=== PATIENT | male | born 1985 | race Hispanic/Latino ===

== ENCOUNTER 2020-09-02 05:58 | Emergency (ER) | payer SELFPAY ==
[2020-09-02 06:17] VITALS: BP 128/98; PULSE 92; RESP 18; TEMP 37; O2SAT 96
--- NOTE | 2020-09-02 06:25 | PC.NURSE ---
Pt presents to ED with complaints or pain to right ear for the past 2 days. Pt states he was cleaning his ear with q tip and went too far. Since then he has been experiencing yellow drainage and pain rated 8/10. Pain was last treated with tylenol yesterday. Denies nvd, fever, chills, chest pain and sob. Pt is alert and oriented x4. Divehi speaking with at bedside to translate. Pt resting comfortably on cart in its lowest position with call button and personal items within reach. Advised to press call button for assistance. Vitals are stable and pt in no obvious distress at this time.
--- NOTE | 2020-09-02 06:32 | ED.EAR ---
HPI - Ear Problem General Chief complaint: Ear Stated complaint: ear pain for 2 days Time Seen by Provider: 09/02/20 06:37 Source: patient Mode of arrival: ambulatory Limitations: no limitations History of Present Illness HPI Narrative: Patient complaining of right ear pain that started a few days ago. Denies any trauma to the ear. Denies any discharge. Denies any headache, neck pain, fever or chills. Complaint: ear pain Duration: constant Severity: moderate Relieving factors: nothing Exacerbating factors: palpation Related Data Allergies Allergy/AdvReac Type Severity Reaction Status Date / Time No Known Allergies Allergy Unverified 11/16/12 17:07 Review of Systems Review of Systems: All systems reviewed & are unremarkable except as noted in HPI and below PMFSH Social History Social History Gender identity (if verbalized by the patient): Male Comments Past medical history: None Family history: Noncontributory Social history: Non-smoker no EtOH or drug use Exam Const: General: healthy appearing, no acute distress and alert Orientation/consciousness: patient oriented x3 HENMT: Head: normal to inspection Face and sinus: normal facial exam Other: Erythematous, tender, swollen right external ear canal. Negative for any discharge. Tympanic membrane intact. Course Vital Signs Vital signs: Vital Signs Temperature 37.0 C 09/02/20 06:17 Pulse Rate 92 09/02/20 06:17 Respiratory Rate 18 09/02/20 06:17 Blood Pressure 128/98 H 09/02/20 06:17 Pulse Oximetry 96 09/02/20 06:17 Temperature 37.0 C 09/02/20 06:17 Pulse Rate 92 09/02/20 06:17 Respiratory Rate 18 09/02/20 06:17 Blood Pressure 128/98 H 09/02/20 06:17 Pulse Oximetry 96 09/02/20 06:17 Medical Decision Making Vital Signs Vital Signs: Vital Signs Temperature 37.0 C 09/02/20 06:17 Pulse Rate 92 09/02/20 06:17 Respiratory Rate 18 09/02/20 06:17 Blood Pressure 128/98 H 09/02/20 06:17 Pulse Oximetry 96 09/02/20 06:17 Temperature 37.0 C 09/02/20 06:17 Pulse Rate 92 09/02/20 06:17 Respiratory Rate 18 09/02/20 06:17 Blood Pressure 128/98 H 09/02/20 06:17 Pulse Oximetry 96 09/02/20 06:17 Discharge Plan Discharge Clinical Impression: Otitis externa Qualifiers: Otitis externa type: other infective Chronicity: acute Laterality: right Qualified Code(s): H60.391 - Other infective otitis externa, right ear Patient Disposition: Home, Self-Care Condition: Improved Instructions: Swimmer's Ear (AC) Patient Language: Kiswahili Prescriptions: New ciprofloxacin-dexamethasone [Ciprodex] 0.3-0.1 % drops,suspension 4 drp EACH EAR Q12H 7 Days RF: 0 Follow-up/Referrals: PHYSICIAN,[employer] CONTR[employer] OPERATOR [employer]MING [Primary Care Provider] - 09/04/20 Time of Disposition: 06:48
[2020-09-02] MEDS: IBUPROFEN 600 MG TABLET PO (06:46)
[2020-09-02] MEDS: ACETAMINOPHEN 325 MG TABLET 650 MG PO (06:46)
[2020-09-02 07:10] VITALS: BP 128/98; PULSE 92; RESP 16; TEMP 37; O2SAT 96
[2020-09-02 07:12] VITALS: BP 128/98; PULSE 92; RESP 18; TEMP 37; O2SAT 96
== END 2020-09-02 07:13 | disposition home or self-care (01) ==
PROVIDERS: Emergency Provider Emergency Medicine
DX: H60.391 Other infective otitis externa, right ear (principal)
CPT/HCPCS: 99283; A9270

== ENCOUNTER 2022-02-28 13:49 | Emergency (ER) | payer SELFPAY ==
[2022-02-28] VITALS (15 sets, daily range): BP systolic 124–156; BP diastolic 92–98; PULSE 72–102; RESP 16–23; TEMP 36.6; O2SAT 97–100
--- NOTE | ~2022-02-28 | XR_ITS ---
EXAMINATION: XR chest 2V Exam Date/Time: 02/28/2022 19:10 SET UP MOLD TECHNICIAN HISTORY: HTN, SOB, SHAKING, DIAPHORETIC, SMOKER Comparison: None available. RESULT: Lines, tubes, and devices: None. Lungs and pleura: Clear. Bibasilar scar/atelectasis. Cardiomediastinal silhouette: Normal. Other: No acute osseous or upper abdominal finding. IMPRESSION: No acute cardiopulmonary process. Reviewed, dictated and finalized at location K. UP MOLD TECHNICIAN
--- NOTE | 2022-02-28 13:53 | ECG_ITS ---
Measurements Intervals [place] Rate: 96 P: 53 [place]: 158 QRS: 19 QRSD: 113 T: 48 QT: 315 QTc: 398 Interpretive Statements SINUS RHYTHM INCOMPLETE RIGHT BUNDLE BRANCH BLOCK ST ELEVATIOIN IN DIFFUSE LEADS- PROBABLY EARLY REPOLARIZATION BORDERLINE ECG NO PREVIOUS ECG AVAILABLE FOR COMPARISON Electronically Signed On 02-28-2022 14:15:05 [facility] by Marc Bailey D.O.
[2022-02-28 14:18] LABS: Basophils Percent Auto 0.5 % (0.2-1.2); Eosinophils Absolute Auto 0.2 K/mm3 (0-0.3); Hemoglobin 17.3 g/dL (14.0-18.0); Immature Granulocyte Absolute 0.04 K/mm3 (0.00-0.031); Immature Granulocyte Percent A 0.5 % (0-0.5); Lymphocytes Absolute Auto 2.68 K/mm3 (0.9-3.2); Lymphocytes Percent Auto 31.9 % (18.3-44.2); Mean Corpuscular HGB Conc 35.3 g/dl (32-36); Mean Corpuscular Hemoglobin 33.7 pg (26-34); Mean Corpuscular Volume 95.3 fl (80-100); Mean Platelet Volume 10.2 fl (7.4-10.4); Monocytes Absolute Auto 0.6 K/mm3 (0.1-0.6); Monocytes Percent Auto 7.2 % (2.6-8.5); Neutrophils Absolute Auto 4.9 K/mm3 (1.3-6.7); Neutrophils Percent Auto 57.9 % (45.5-73.1); Platelet Count Result 323 k/mm3 (150-375); Red Blood Count 5.14 M/mm3 (4.6-6.20); Red Cell Distribution Width 11.9 % (11.5-14.5); White Blood Count 8.4 K/mm3 (4.5-10.0)
[2022-02-28 14:42] LABS: Alanine Aminotransferase 69 U/L (6-50); Albumin Level 4.8 g/dL (3.5-5.1); Alkaline Phosphatase 103 U/L (38-126); Anion Gap 12 mmol/L (8-16); Aspartate Amino Transferase 54 U/L (17-59); Blood Urea Nitrogen 17 mg/dL (9-20); Carbon Dioxide 21 mmol/L (22-30); Chloride 106 mmol/L (98-107); Estimated Glomerular Filt Rate > 60; Glucose 90 mg/dL (65-110); Potassium 4.2 mmol/L (3.4-5.0); Sodium 139 mmol/L (137-145)
[2022-02-28 18:29] LABS: Glucose Point of Care 90 mg/dl (65-105)
--- NOTE | 2022-02-28 19:43 | ED.GENADULT ---
HPI - General Adult General Chief complaint: Recheck/Abnormal Lab/Rx Stated complaint: elevated blood pressure Time Seen by Provider: 02/28/22 18:10 History of Present Illness HPI narrative: 36-year-old male presented to the emergency department for evaluation of anxiety. Patient states when he is at work he sometimes has issues where he feels increased anxiety and does have associated shortness of breath. Patient was instructed to check his blood pressure by a concerned coworker and when he went to the pharmacy to check his blood pressure it was elevated. Patient denies any associated chest pain with this. Upon arrival to the emergency department patient states his anxiety is improved. Patient denies any chest pain or shortness of breath. Patient denies any associated lightheaded dizziness. Patient's blood pressure did improve. Related Data Allergies Allergy/AdvReac Type Severity Reaction Status Date / Time No Known Allergies Allergy Unverified 11/16/12 17:07 Review of Systems Review of Systems: CONSTITUTIONAL: Denies fever, chills, or sweats. EYES: Denies visual changes, redness, or discharge. ENT: Denies rhinorrhea, congestion, sore throat, or otalgia. CARDIOVASCULAR: Denies chest pain, palpitations, or edema. RESPIRATORY: Denies cough or dyspnea. GASTROINTESTINAL: Denies abdominal pain, nausea, vomiting, or diarrhea. GENITOURINARY: Denies dysuria or hematuria. SKIN: Denies rash or itching. MUSCULOSKELETAL: Denies back pain, joint pain, or myalgia. NEUROLOGIC: Denies headache, numbness, or weakness. PSYCHIATRIC: Anxiety, see HPI PMFSH Social History Social History Gender identity (if verbalized by the patient): Male Exam Narrative: APPEARANCE: Well appearing, no pain, no distress, well-nourished. HEAD: normocephalic, atraumatic. EYES: PERRLA/EOMI, conjunctivae clear. NOSE: Normal no drainage EARS:TMS clear with good light reflex. THROAT: Pharynx clear, no exudate. NECK: Supple. No adenopathy, no masses. RESPIRATORY: Airway patent, respirations nonlabored. Clear to auscultation bilaterally, no rales, rhonchi, wheezing. CARDIOVASCULAR: Regular rate and rhythm without murmurs rubs or gallops. ABDOMINAL: Soft, nontender, nondistended, normal bowel sounds MUSCULOSKELETAL: Moves all extremities. Strength/ROM intact, No edema, No calf tenderness. NEURO: Alert. Cranial nerves II through XII intact. Grossly intact SKIN: Warm, dry. Normal Color Course Course Emergency Course: Patient states that his anxiety is situational. Patient has never been treated for anxiety. Patient does have a new primary care physician that he is set to see but has not yet seen. Patient will be provided Ativan for as needed use but patient and family were recommended to have close follow-up with a primary care physician for longer acting medications to help with anxiety that are not benzodiazepines. Patient was comfortable with the plan for discharge and close follow-up. Vital Signs Vital signs: Vital Signs Temperature 97.8 F 02/28/22 13:50 Pulse Rate 102 H 02/28/22 13:50 Respiratory Rate 16 02/28/22 13:50 Blood Pressure 156/92 H 02/28/22 13:50 Pulse Oximetry 99 02/28/22 13:50 Oxygen Delivery Room Air 02/28/22 13:50 Temperature 97.8 F 02/28/22 13:50 Pulse Rate 85 02/28/22 20:30 Respiratory Rate 16 02/28/22 20:30 Blood Pressure 143/93 H 02/28/22 19:01 Pulse Oximetry 99 02/28/22 20:30 Oxygen Delivery Room Air 02/28/22 18:12 Medical Decision Making Vital Signs Vital Signs: Vital Signs Temperature 97.8 F 02/28/22 13:50 Pulse Rate 102 H 02/28/22 13:50 Respiratory Rate 16 02/28/22 13:50 Blood Pressure 156/92 H 02/28/22 13:50 Pulse Oximetry 99 02/28/22 13:50 Oxygen Delivery Room Air 02/28/22 13:50 Temperature 97.8 F 02/28/22 13:50 Pulse Rate 85 02/28/22 20:30 Respiratory Rate 16 02/28/22 20:30 Blood Pressure
[2022-02-28] MEDS: LORazepam (*CRX) 1 MG TABLET PO (19:52)
== END 2022-02-28 20:50 | disposition home or self-care (01) ==
PROVIDERS: Emergency Provider Emergency Medicine
DX: F41.9 Anxiety disorder, unspecified (principal); R42 Dizziness and giddiness; I45.10 Unspecified right bundle-branch block; R94.31 Abnormal electrocardiogram [ECG] [EKG]
CPT/HCPCS: 36415; 71046; 80053; 82948; 85025; 93005; 99284; A9270